=== PATIENT | female | born 1990 | race African-American/Black ===

== ENCOUNTER → 2021-07-02 | Outpatient (REF) | LOC: M LABSMTC 09:18 | PROVIDERS: ATTEND Pediatrics | DX: Z11.52 Encounter for screening for COVID-19 (principal) ==

== ENCOUNTER → 2022-01-27 | Outpatient (CLI) | payer OTHER | LOC: M SLEEP HO 10:16 | PROVIDERS: ATTEND Nurse Practitioner Adult Health | DX: G47.30 Sleep apnea, unspecified (principal) ==